=== PATIENT | male | born 1950 | race Caucasian/White ===

== ENCOUNTER 2016-07-13 16:04 | Emergency (ER) | payer OTHER ==
[~2016-07-13] VITALS: Ht 170.2 cm; Wt 100.0 kg
[~2016-07-13 16:04] MED LIST: FEXO180 PO; NEXI20CA PO
[2016-07-13 16:05] VITALS: BP 131/71; PULSE 85; RESP 16; TEMP 98.4; O2SAT 95
[2016-07-13 16:53] LABS: AUTOMATED NEUTROPHIL # 6.6 TH/MM3 (1.8-7.7); BASOPHIL % 0.3 % (0.0-2.0); EOSINOPHIL # 0.9 TH/MM3 (0-0.4); EOSINOPHIL % 8.1 % (0.0-4.0); HEMATOCRIT 42.9 % (39.0-51.0); HEMO FLAGS DIFF FINAL; LYMPH % 24.8 % (9.0-44.0); LYMPHOCYTE # 2.8 TH/MM3 (1.0-4.8); MEAN CELL VOLUME 86.5 FL (80.0-100.0); MEAN CORPUSCULAR HEMOGLOBIN 29.7 PG (27.0-34.0); MEAN CORPUSCULAR HGB CONC 34.4 % (32.0-36.0); MONO % 8.1 % (0.0-8.0); NEUT % 58.7 % (16.0-70.0); PLATELET COUNT 243 TH/MM3 (150-450); RED BLOOD COUNT 4.96 MIL/MM3 (4.50-5.90); RED CELL DISTRIBUTION WIDTH 14.1 % (11.6-17.2); WHITE BLOOD COUNT 11.3 TH/MM3 (4.0-11.0)
[2016-07-13 16:57] LABS: BACTERIA, URINE RARE /hpf; BLOOD, URINE LARGE (NEG); COMMENT (UR) CULT NOT INDICATED; CULTURE IF INDICATED CULT NOT INDICATED; GLUCOSE,URINE NEG (NEG); KETONE, URINE NEG (NEG); MUCUS URINE FEW /lpf (OCC); NITRITE,URINE NEG (NEG); PH, URINE 7.5 (5.0-8.5); URINE COLOR LIGHT-YELLOW (YELLW/STRAW)
[2016-07-13] MEDS ORDERED: NAPR250T57 PO (17:06)
[2016-07-13] MEDS ORDERED: SIMV40TA PO (17:06)
[2016-07-13 17:09] LABS: ALT (GPT) 34 U/L (12-78); ANION GAP 6 MEQ/L (5-15); AST (GOT) 22 U/L (15-37); BICARBONATE 32.1 MEQ/L (21.0-32.0); BLOOD UREA NITROGEN 12 MG/DL (7-18); CHLORIDE 103 MEQ/L (98-107); GLOMERULAR FILTRATION RATE 90 ML/MIN (>89); POTASSIUM 4.3 MEQ/L (3.5-5.1); SODIUM (NA) 141 MEQ/L (136-145)
[2016-07-13 17:12] LABS: ALKALINE PHOSPHATASE 74 U/L (45-117); TOTAL BILIRUBIN ADULT 0.7 MG/DL (0.2-1.0)
--- NOTE | 2016-07-13 17:21 | PD ---
HPI Chief Complaint: Complaint Time Seen by Provider: 17:19 Travel History International Travel<30 days: No Contact w/Intl Traveler<30days: No Traveled to known affect area: No History of Present Illness HPI 65-year-old male presents to emergency Department with complaint of right lower quadrant abdominal pressure and blood in his urine that he noticed this morning. The abdominal pressure started today. He denies dysuria. Denies fever, chills, nausea, vomiting. Denies change in stool. Drink some camomile tea this morning with a little bit of decrease in pain. No known aggravating factors. Was seen in urgent care this morning and was told if the pain continues to be seen in the ER. History of kidney stones. History of GERD and increased cholesterol. Denies history of abdominal surgeries. Allergies to sulfa and nuts. Primary care provider is Dr. Quinteros. Rotary Drier Operator is Dr. Blunt. [facility] Past Medical History High Cholesterol: Yes Diverticulitis: Yes GERD: Yes Kidney Stones: Yes Tetanus Vaccination: Unknown Past Surgical History Tonsillectomy: Yes Other Surgery: Yes (HEMMORRHOIDS) Social History Alcohol Use: No Tobacco Use: No Substance Use: No Allergies-Medications (Allergen,Severity, Reaction): Coded Allergies: Coconut (Verified Allergy, Severe, 07/13/16) Sulfa (Verified Allergy, Severe, HIVES, 07/13/16) Uncoded Allergies: NUTS (Allergy, Severe, 05/28/12) Reported Meds & Prescriptions Reported Meds & Active Scripts Active Ibuprofen 600 Mg Tab 600 Mg PO Q6H PRN Flomax (Tamsulosin HCl) 0.4 Mg Cap 0.4 Mg PO HS 7 Days Reported Simvastatin 40 Mg Tab 40 Mg PO HS Naprosyn (Naproxen) 250 Mg Tab 250 Mg PO BID PRN Review of Systems Except as stated in HPI: all other systems reviewed are Neg Physical Exam Narrative GENERAL: Well-nourished, well-developed male patient, in no acute distress; afebrile, nontoxic-appearing SKIN: Warm and dry. No rash. HEAD: Atraumatic. Normocephalic. EYES: Pupils equal and round. No scleral icterus. No injection or drainage. ENT: Mucosa pink and moist. NECK: Trachea midline. CARDIOVASCULAR: Regular rate and rhythm. No murmur appreciated. RESPIRATORY: No accessory muscle use. Clear to auscultation. Breath sounds equal bilaterally. GASTROINTESTINAL: Abdomen soft, tenderness on palpation to the right lower quadrant, nondistended. Hepatic and splenic margins not palpable. Bowel sounds are active 4 quadrants. Bladder nontender and nondistended. No rebound tenderness. Abdomen is nonrigid and without guarding. MUSCULOSKELETAL: No obvious deformities. No clubbing. No cyanosis. No edema. BACK: No CVA tenderness NEUROLOGICAL: Awake and alert. Oriented 3. No obvious cranial nerve deficits. Motor grossly within normal limits. Normal speech. Moves all extremities. 5/5 strength to all extremities. PSYCHIATRIC: Appropriate mood and affect; insight and judgment normal. Data Data Last Documented VS Vital Signs Date Time Temp Pulse Resp B/P Pulse Ox O2 Delivery O2 Flow Rate FiO2 07/13/16 16:05 98.4 85 16 131/71 95 Orders Complete Blood Count With Diff (07/13/16 16:18) Comprehensive Metabolic Panel (07/13/16 16:18) Urinalysis - C+S If Indicated (07/13/16 16:18) Lipase (07/13/16 16:18) Ct Abd/Pel W/O Iv Contrast (07/13/16 17:22) Sodium Chlor 0.9% 1000 Ml Inj (Ns 1000 M (07/13/16 18:15) Ketorolac Inj (Toradol Inj) (07/13/16 18:15) Filter, Kidney Stone Bg (07/13/16 18:09) Labs Laboratory Tests Test 07/13/16 16:20 White Blood Count 11.3 TH/MM3 Red Blood Count 4.96 MIL/MM3 Hemoglobin 14.7 GM/DL Hematocrit 42.9 % Mean Corpuscular Volume 86.5 FL Mean Corpuscular Hemoglobin 29.7 PG Mean Corpuscular Hemoglobin 34.4 % Concent Red Cell Distribution Width 14.1 % Platelet Count 243 TH/MM3 Mean Platelet Volume 9.2 FL Neutrophils (%) (Auto) 58.7 % Lymphocytes (%) (Auto) 24.8 % Monocytes (%) (Auto) 8.1 % Eosinophils (%) (Auto) 8.1 % Basophils (%) (Auto) 0.3 % Neutrophils # (Auto) 6.6 TH/MM3 Lymphocytes # (Auto) 2.8 TH/MM3 Monocytes # (Auto) 0.9 TH/MM3 Eosinophils # (Auto) 0.9 TH/MM3 Basophils # (Auto) 0.0 TH/MM3 CBC Comment DIFF FINAL Differential Comment Urine Color LIGHT-YELLOW Urine Turbidity CLEAR Urine pH 7.5 Urine Specific [place] 1.006 Urine Protein NEG mg/dL Urine Glucose (UA) NEG mg/dL Urine Ketones NEG mg/dL Urine Occult Blood LARGE Urine Nitrite NEG Urine Bilirubin NEG Urine Urobilinogen LESS THAN 2.0 MG/DL Urine Leukocyte Esterase NEG Urine RBC 82 /hpf Urine WBC 2 /hpf Urine Bacteria RARE /hpf Urine Mucus FEW /lpf Microscopic Urinalysis Comment CULT NOT INDICATED Sodium Level 141 MEQ/L Potassium Level 4.3 MEQ/L Chloride Level 103 MEQ/L Carbon Dioxide Level 32.1 MEQ/L Anion Gap 6 MEQ/L Blood Urea Nitrogen 12 MG/DL Creatinine 0.85 MG/DL Estimat Glomerular Filtration 90 ML/MIN Rate Random Glucose 88 MG/DL Calcium Level 9.3 MG/DL Total Bilirubin 0.7 MG/DL Aspartate Amino Transf 22 U/L (AST/SGOT) Alanine Aminotransferase 34 U/L (ALT/SGPT) Alkaline Phosphatase 74 U/L Total Protein 8.2 GM/DL Albumin 4.1 GM/DL Lipase 148 U/L [facility] Medical Decision Making Medical Screen Exam Complete: Yes Emergency Medical Condition: Yes Medical Record Reviewed: Yes Differential Diagnosis Nephrolithiasis, appendicitis, cholecystitis Narrative Course 65-year-old male with hematuria and right lower quadrant abdominal pain that started this morning. Patient placed on cardiopulmonary monitor. IV site obtained. CBC, CMP, lipase, urinalysis ordered in triage. CT abdomen/pelvis ordered. 1719: CBC unremarkable. CMP unremarkable. Lipase 148. Urinalysis with high occult blood and 82 RBC. 1805: CT abdomen/pelvis concludes Last 24 hours Impressions Abdomen/Pelvis CT 07/13/16 1722 Signed Impressions: Service Date/Time: Wednesday, July 13, 2016 17:35 - CONCLUSION: 1. 2 mm mid right ureteral calculus with mild hydroureter and hydronephrosis. 2. Tiny 1 mm nonobstructing left renal calculus. Otis Mercedes MD I discussed the patient with Dr. Mckeon, my attending physician, and he recommended Flomax, ibuprofen, and urine strainer for home, and for the patient to follow up with urology. 1 L normal saline bolus and Toradol administered in the ER. Prescriptions for Flomax, ibuprofen prescribed for home. Patient was provided a urine strainer to strain his urine at home. Instructed patient to follow up with urology. A report of the CT was given to the patient at discharge. Patient verbalizes understanding and agreement with treatment plan. Patient is medically cleared and stable for discharge. Discussed reasons to return to the emergency department. Instructed patient to follow up with primary care provider. Patient agrees with treatment plan. The patients vital signs are stable and the patient is stable for outpatient follow-up and treatment. Patient discharged home, stable and in no acute distress. Diagnosis Primary Impression: Right ureteral calculus Referrals: Primary Care Physician Urologist Patient Instructions: General Instructions, Kidney Stones (ED) Additional Instructions: Ibuprofen as needed and as directed to reduce pain Drink plenty of fluids Strain your urine Follow-up with primary care provider Follow-up with urologist Return to the emergency department immediately with worsening of symptoms Med/Other Pt SpecificInfo: Prescription(s) given Scripts Ibuprofen 600 Mg [id number] Mg PO Q6H PRN (Pain/Inflammation) #30 TAB Ref 0 Prov:Ashely Vance 07/13/16 Tamsulosin (Flomax)0.4 Mg Cap0.4 Mg PO HS 7 Days Ref 0 Prov:Ashely Vance 07/13/16 Disposition: 01 DISCHARGE HOME Condition: Stable Ashely Vance Jul 13, 2016 17:21
--- NOTE | 2016-07-13 17:58 | RADRPT ---
EXAM DATE/TIME: 07/13/2016 17:35 [facility] COMPARISON: CT ABDOMEN & PELVIS W/O CONTRAST, May 28, 2012, 1:19. INDICATIONS : Right lower quadrant pain with hematuria. ORAL CONTRAST: No oral contrast ingested. RADIATION DOSE: 21.85 CTDIvol (mGy) MEDICAL HISTORY : Diverticulitis. Gastroesophageal reflux disease. SURGICAL HISTORY : hemorrhoid surgery ENCOUNTER: Initial ACUITY: 1 day PAIN SCALE: 7/10 LOCATION: Right lower quadrant TECHNIQUE: Volumetric scanning of the abdomen and pelvis was performed. Using automated exposure control and ad justment of the mA and/or kV according to patient size, radiation dose was kept as low as reasonably achievable to obtain optimal diagnostic quality images. FINDINGS: LOWER LUNGS: The visualized lower lungs are clear. LIVER: Homogeneous density without lesion. There is no dilation of the biliary tree. No calcified gallston es. SPLEEN: Normal size without lesion. PANCREAS: Within normal limits. KIDNEYS: The kidneys are normal in size and shape. There is a tiny 1 mm nonobstructing left renal calculus. Th ere is mild right hydronephrosis with dilatation of the right ureter down to the level of the upper r ight pelvis at the site of 2 mm calculus is seen on axial image #23. More distal ureter is unremarkab le. The left kidney and ureter are unremarkable ADRENAL GLANDS: Within normal limits. VASCULAR: There is no aortic aneurysm. BOWEL/MESENTERY: The stomach, small bowel, and colon demonstrate no acute abnormality. There is no free intraperitone al air or fluid. ABDOMINAL WALL: Within normal limits. RETROPERITONEUM: There is no lymphadenopathy. BLADDER: No wall thickening or mass. REPRODUCTIVE: Within normal limits. INGUINAL: There is no lymphadenopathy or hernia. MUSCULOSKELETAL: Within normal limits for patient age. CONCLUSION: 1. 2 mm mid right ureteral calculus with mild hydroureter and hydronephrosis. 2. Tiny 1 mm nonobstructing left renal calculus. Otis Mercedes MD on July 13, 2016 at 17:53 Board Certified Radiologist. This report was verified electronically.
[2016-07-13] MEDS ORDERED: TAMS5CAP PO (18:14)
[2016-07-13] MEDS ORDERED: IBUP-232 PO (18:14)
[2016-07-13] MEDS ORDERED: KETOROLAC TROMETHAMINE 30 MG/ML (IVP) VIAL IV PUSH ONE (18:15)
[2016-07-13] MEDS ORDERED: SODIUM CHLOR 0.9% 1000 ML INJ 1,000 ML IV ONE (18:15)
== END 2016-07-13 19:28 | disposition home or self-care (01) ==
LOC: NEPA 16:04
DX: N13.2 Hydronephrosis with renal and ureteral calculous obstruction (principal)
CPT/HCPCS: 74176; 80053; 81001; 83690; 85025; 96374; 99284; J1885; J7030

== ENCOUNTER 2017-04-08 13:46 | Emergency (ER) | payer OTHER ==
[~2017-04-08 13:46] MED LIST changes: -FEXO180 PO; +IBUP-232 PO; +NAPR250T57 PO; -NEXI20CA PO; +SIMV40TA PO; +TAMS5CAP PO
[2017-04-08 13:58] VITALS: BP 157/91; PULSE 72; RESP 16; TEMP 97.5; O2SAT 96
--- NOTE | 2017-04-08 14:40 | PD ---
HPI Chief Complaint: Cold / Flu Symptoms Time Seen by Provider: 14:23 Travel History International Travel<30 days: No Contact w/Intl Traveler<30days: No Traveled to known affect area: No History of Present Illness HPI 66-year-old male presents to the ED for evaluation of "a few days" history of cough, sneezing, congestion, rhinorrhea, headaches. He states that today he coughed up "some green stuff." He endorses history of seasonal allergies. He states that his cough "hurt my ribs." He denies dizziness, vision changes, chest pain. He denies receiving this years flu shot. He is a nonsmoker. He states that he has been taking azithromycin for 2 days which was prescribed over the phone by his primary care provider. He states that after taking a dose of azithromycin he began to feel nauseated, this is resolved on presentation. PFSH Past Medical History High Cholesterol: Yes Diverticulitis: Yes GERD: Yes Kidney Stones: Yes Past Surgical History Tonsillectomy: Yes Other Surgery: Yes (HEMMORRHOIDS) Social History Alcohol Use: No Tobacco Use: No Substance Use: No Allergies-Medications (Allergen,Severity, Reaction): Coded Allergies: Sulfa (Sulfonamide Antibiotics) (Unverified Allergy, Severe, HIVES, ) coconut (Unverified Allergy, Severe, 12/09/16) Uncoded Allergies: NUTS (Allergy, Severe, 05/28/12) Reported Meds & Prescriptions Reported Meds & Active Scripts Active Tessalon Perles (Benzonatate) 100 Mg Cap 200 Mg PO TID PRN Avril-D 24 Hour Allergy (Fexofenadine-Pseudoephedrine ER 24 HR) 180-240 Gabriel 1 Tab PO DAILY Flomax (Tamsulosin HCl) 0.4 Mg Cap 0.4 Mg PO HS 7 Days Reported Simvastatin 40 Mg Tab 40 Mg PO HS Review of Systems Except as stated in HPI: all other systems reviewed are Neg Physical Exam Narrative GENERAL: Well-nourished, well-developed white male in no acute distress. SKIN: Warm and dry. HEAD: Normocephalic. Atraumatic. EYES: No scleral icterus. Eyes are watery and mildly injected. PERRLA. EOMI. ENT: Pearly phipps tympanic membranes bilaterally. Nasal mucosa is moist, boggy. Oropharynx mild posterior erythema. No edema or exudate. NECK: Supple, trachea midline. No JVD or lymphadenopathy. CARDIOVASCULAR: Regular rate and rhythm without murmurs, gallops, or rubs. RESPIRATORY: Breath sounds clear and equal bilaterally. No accessory muscle use. GASTROINTESTINAL: Abdomen soft, non-tender, nondistended. + Bowel sounds MUSCULOSKELETAL: No cyanosis, or edema. BACK: Nontender without obvious deformity. No CVA tenderness. Data Data Last Documented VS Vital Signs Date Time Temp Pulse Resp B/P (MAP) Pulse Ox O2 Delivery O2 Flow Rate FiO2 04/08/17 13:58 97.5 72 16 157/91 (113) 96 Orders Orders Chest, Pa & Lat (04/08/17 ) Influenzae A/B Antigen (04/08/17 14:35) MDM Medical Decision Making Medical Screen Exam Complete: Yes Emergency Medical Condition: Yes Differential Diagnosis Viral syndrome versus seasonal allergies versus pneumonia versus bronchitis versus other Narrative Course 66-year-old male presents to the ED for evaluation of "a few days" history of cough, sneezing, congestion, rhinorrhea, headaches. He states that today he coughed up "some green stuff." He endorses history of seasonal allergies. He states that his cough "hurt my ribs." He denies dizziness, vision changes, chest pain. He denies receiving this years flu shot. He is a nonsmoker. He states that he has been taking azithromycin for 2 days which was prescribed over the phone by his primary care provider. He states that after taking a dose of azithromycin he began to feel nauseated, this is resolved on presentation. Vitals reviewed. On exam the patient is nontoxic appearing. The nasal mucosa is boggy and bluish. Mild posterior oropharyngeal erythema. Chest CTA B. X-ray reveals no acute disease per radiology read. Flu swab negative. I suspect that this is upper respiratory infection superimposed on seasonal allergies. Patient's prescribed 30 days of Avril-D and short course of Tessalon Perles. He is instructed to continue taking the eighth azithromycin , follow up with his primary care provider. He indicated understanding of the instructions and is agreeable to the care plan. The patient is stable and discharged home. Diagnosis Primary Impression: Upper respiratory infection Qualified Codes: J06.9 - Acute upper respiratory infection, unspecified Additional Impression: Environmental and seasonal allergies Referrals: Primary Care Physician Patient Instructions: Allergies (ED), General Instructions, Upper Respiratory Infection (ED) Additional Instructions: Rest, hydrate. Push fluids such as sports drinks, Pedialyte, popsicles, clear broth. Continue with symptomatic treatment. Continue the azithromycin provided by your primary care provider. Avril-D daily. Tessalon Perles up to 3 times a day to reduce urged tocough. Increase handwashing frequently to avoid the spread of the virus to other family members and the community. Disinfect commonly touched surfaces such as light switches, microwaves, remote controls. Replace toothbrush at the end of this illness. Follow-up with the primary care provider this week. Return to the ED for any urgent or emergent medical condition. Med/Other Pt SpecificInfo: Prescription(s) given Scripts Benzonatate (Tessalon Perles) 100 Mg Cap 200 MG PO TID Y for COUGH, #15 CAP 0 Refills Prov: Christal Noe DO 04/08/17 Fexofenadine-Pseudoephedrine ER 24 HR (Avril-D 24 Hour Allergy) 180-240 Gabriel 1 TAB PO DAILY for Allergy Management, #30 TAB 0 Refills Prov: Christal Noe DO 04/08/17 Disposition: 01 DISCHARGE HOME Condition: Stable Rachael Lewis Apr 08, 2017 14:40
--- NOTE | 2017-04-08 14:42 | RADRPT ---
EXAM DATE/TIME: 04/08/2017 14:21 [facility] COMPARISON: No previous studies available for comparison. INDICATIONS : Cough. MEDICAL HISTORY : Diverticulitis. Gastroesophageal reflux disease. SURGICAL HISTORY : hemorrhoid surgery ENCOUNTER: Initial ACUITY: 1 day PAIN SCORE: 0/10 LOCATION: Bilateral chest FINDINGS: PA and lateral views of the chest demonstrate the lungs to be symmetrically aerated without evidence of mass, infiltrate or effusion. The cardiomediastinal contours are unremarkable. Osseous structure s are intact. CONCLUSION: 1. No acute cardiopulmonary disease. Juan Layton MD on April 08, 2017 at 14:33 Board Certified Radiologist. This report was verified electronically.
[2017-04-08] MEDS ORDERED: FEXO1TAB97 PO (15:08)
[2017-04-08] MEDS ORDERED: BENZ100 PO (15:08)
== END 2017-04-08 15:40 | disposition home or self-care (01) ==
LOC: NEPK 13:46
DX: J06.9 Acute upper respiratory infection, unspecified (principal); J30.2 Other seasonal allergic rhinitis; R51 Headache; E78.00 Pure hypercholesterolemia, unspecified; K21.9 Gastro-esophageal reflux disease without esophagitis; Z87.442 Personal history of urinary calculi; Z87.19 Personal history of other diseases of the digestive system; Z79.899 Other long term (current) drug therapy; Z88.2 Allergy status to sulfonamides
CPT/HCPCS: 71020; 87804; 99283